=== PATIENT | male | born 1980 | race Caucasian/White ===

== ENCOUNTER → 2016-10-24 | Outpatient (CLI) | payer BC | LOC: GMAB 10:48 | PROVIDERS: ATTEND Family Medicine | DX: Z00.00 Encounter for general adult medical examination without abnormal findings (principal); E83.110 Hereditary hemochromatosis ==

== ENCOUNTER → 2017-05-12 | Outpatient (CLI) | payer BC | END | disposition home or self-care (01) | LOC: LAB.O 09:03 | PROVIDERS: ATTEND Family Medicine | DX: Z01.83 Encounter for blood typing (principal); E11.9 Type 2 diabetes mellitus without complications ==

== ENCOUNTER → 2017-05-16 | Outpatient (CLI) | payer BC | END | disposition home or self-care (01) | LOC: LAB.O 17:11 | PROVIDERS: ATTEND Surgery | DX: K80.20 Calculus of gallbladder without cholecystitis without obstruction (principal); R94.5 Abnormal results of liver function studies; E03.9 Hypothyroidism, unspecified ==

== ENCOUNTER 2017-05-18 05:57 | Day surgery (SDC) | payer BC ==
[2017-05-18] MEDS ORDERED: METOCLOPRAMIDE HCL INJ 10 MG/2 ML VIAL ONE (07:00)
[2017-05-18] MEDS ORDERED: PROPOFOL 200 MG/20 ML VIAL IV ONE (07:00)
[2017-05-18] MEDS ORDERED: LIDOCAINE 1% 10 ML VIAL INJ ONE (07:00)
[2017-05-18] MEDS ORDERED: DEXAMETHASONE INJ 10 MG/ML VIAL ONE (07:00)
[2017-05-18] MEDS ORDERED: KETOROLAC TROMETHAMINE INJ 30 MG/ML VIAL ONE (07:00)
[2017-05-18] MEDS ORDERED: raNITIdine HCL INJ 25 MG/ML VIAL ONE (07:00)
[2017-05-18] MEDS ORDERED: LACTATED RINGERS 1,000 ML ONE (07:09)
[2017-05-18] MEDS ORDERED: SODIUM CHL 0.9% 100ML MINI-BAG 100 ML IVPB ONE (07:13)
[2017-05-18] MEDS ORDERED: ceFAZolin SODIUM 1 GM VIAL ONE (07:13)
[2017-05-18] MEDS ORDERED: BUPIVACAINE 0.25% W/EPI 50 ML VIAL INJ ONE (08:20)
[2017-05-18] MEDS ORDERED: HEPARIN SODIUM (PORCINE) 10,000 UNITS/ML VIAL ONE (08:21)
[2017-05-18] MEDS ORDERED: MIDAZOLAM INJ 5 MG/5 ML VIAL ONE (10:56)
[2017-05-18] MEDS ORDERED: fentaNYL CITRATE INJ 50 MCG/ML AMP ONE (10:56)
[2017-05-18] MEDS ORDERED: ROCURONIUM BROMIDE 10 MG/ML VIAL ONE ×2 (10:57→11:35)
[2017-05-18] MEDS ORDERED: SUGAMMADEX SODIUM 200 MG/2 ML VIAL IV ONE ×2 (11:06→12:46)
[2017-05-18] MEDS ORDERED: HYDROmorphone HCL INJ 2 MG/ML VIAL ONE (11:56)
--- NOTE | 2017-05-18 14:06 | OP ---
DATE OF PROCEDURE: 05/18/17 PREOPERATIVE DIAGNOSIS: 1. Symptomatic cholelithiasis. 2. History of elevated liver function tests. 3. Diabetes. POSTOPERATIVE DIAGNOSIS: 1. Symptomatic cholelithiasis. 2. History of elevated liver function tests. 3. Diabetes. 4. Chronic cholecystitis. PROCEDURE: 1. Laparoscopic cholecystectomy with intraoperative cholangiography using fluoroscopy. SURGEON: Yfn Koehler MD. TEMPER MILL OPERATOR: None. ANESTHESIA: Local infiltration of 0.25% Marcaine with epinephrine and general endotracheal anesthesia. INDICATION: The patient is a 36-year-old male who has had at least two episodes of severe right upper quadrant pain with radiation to the back. He has CT diagnosed cholelithiasis. Both his attacks were associated with a fatty meal although he otherwise denies fatty food intolerance. He has had liver function tests which have normal, but in the past have been elevated. The patient was brought to the [facility] today for laparoscopic cholecystectomy with cholangiography and possible wedge biopsy of the liver after the risks, benefits and alternatives to the procedure were discussed and accepted. FINDINGS: The gallbladder had mildly thickened wall. There were multiple adhesions to the gallbladder from the omentum and from the duodenum. There were small stones in the gallbladder and upon opening the cystic duct, we fished out approximately 4 to 6 small stones. Intraoperative cholangiography revealed free flow into the duodenum with no filling defects or strictures noted. The upper tracts were small and multiple small stones were felt in the gallbladder. The liver appeared to be normal and no biopsy was performed. There was certainly no sign of fatty infiltration of the liver. DESCRIPTION OF PROCEDURE: After adequate general endotracheal anesthesia was obtained, the patient was prepped and draped in the usual sterile manner. He was given 2 grams of Ancef. Surgical time-out was taken. A supraumbilical incision was made vertically, first with infiltration of anesthesia and then with a sharp knife. Dissection was carried down through the skin and subcutaneous tissue to the midline fascia using blunt dissection. Traction sutures were placed on either side of the midline. A small incision was made in the midline fascia and the peritoneum was opened bluntly. Meredith trocar was introduced under direct vision into the abdominal cavity and fixed in place with the 20 mL balloon. CO2 was then insufflated until a pressure of 12 mmHg was reached and the abdomen was tympanitic in all four quadrants. When this was done, the laparoscope was introduced. The abdomen was inspected with the previously noted findings. The patient was then placed in reverse Trendelenburg position, turned to the left side. The upper abdominal ports were placed under direct vision. The gallbladder was grasped, and using electrocautery and blunt dissection, the adhesions to the gallbladder were taken down. The neck of the gallbladder was retracted laterally. The triangle of Calot was then explored with the cystic duct and cystic artery identified and isolated. The cystic duct was hemoclipped once proximally. The cystic artery was hemoclipped twice proximally and once distally. A second venous area was clipped proximally and distally. A small incision was made in the cystic duct. The cholangiogram catheter was introduced through a separate stab wound in the right upper quadrant, introduced into the cystic duct and clipped in place. Cholangiograms were then taken using fluoroscopy which revealed free flow into the duodenum with no filling defects or strictures noted. It is noted that several small stones were milked from the cystic duct upon initially opening and these were aspirated using the suction device. When this was done, the cystic duct catheter was removed. The cystic duct was hemoclipped three times distally and divided between the hemoclips. The cystic artery was divided. The gallbladder was then dissected free from the gallbladder bed of the liver using electrocautery without difficulty. The gallbladder was placed in an EndoCatch bag and removed from the supraumbilical port site in the usual manner under direct vision. When this was done, the subhepatic space and subphrenic space were irrigated copiously with saline as was the gallbladder bed of the liver and the aislinn hepatis. Eventually, the effluent was noted to be clear. The aislinn hepatis was inspected and no bleeding or bile leak was identified. The gallbladder bed of the liver shows no active bleeding. At this point, the upper abdominal ports were removed under direct vision and good hemostasis was noted. At this point, the CO2, the laparoscope and the supraumbilical port were removed. The supraumbilical port site fascia was approximated with a single [id number] suture of 0 Vicryl. Subcutaneous tissue was irrigated with saline. Skin edges were approximated with 4-0 Vicryl subcuticular sutures, benzoin and Steri-Strips. Sterile dressings were applied. The patient was awakened and taken to the Recovery Room in good and stable condition. Estimated blood loss was approximately 25 mL. All sponge, needle and instrument counts were correct. #[id number] [id number]
[2017-05-18 14:36] VITALS: BP 122/81; TEMP 98.1; O2SAT 98
== END 2017-05-18 14:15 | disposition home or self-care (01) ==
LOC: AMB 05:57
PROVIDERS: ATTEND Surgery
DX: K80.10 Calculus of gallbladder with chronic cholecystitis without obstruction (principal); E11.9 Type 2 diabetes mellitus without complications; R94.5 Abnormal results of liver function studies; I10 Essential (primary) hypertension; E66.9 Obesity, unspecified; Z79.84 Long term (current) use of oral hypoglycemic drugs; Z79.899 Other long term (current) drug therapy
CPT/HCPCS: 00790; 36416; 47563; 76000; 82948; J0690; J1100; J1170; J1644; J1885; J2250; J2765; J2780; J3010; J3490; J7050; J7120

== ENCOUNTER → 2019-09-23 | Outpatient (CLI) | payer BC | LOC: GMAE 11:07 | PROVIDERS: ATTEND Family Medicine | DX: Z00.00 Encounter for general adult medical examination without abnormal findings (principal); E11.9 Type 2 diabetes mellitus without complications ==

== ENCOUNTER → 2019-12-17 | Outpatient (CLI) | payer BC | LOC: LAB.O 11:58 | PROVIDERS: ATTEND Family Medicine | DX: E83.110 Hereditary hemochromatosis (principal) ==

== ENCOUNTER → 2020-11-03 | Outpatient (CLI) | payer SELFPAY | LOC: GMAE 10:56 | PROVIDERS: ATTEND Family Medicine | DX: Z00.00 Encounter for general adult medical examination without abnormal findings (principal) ==